=== PATIENT | female | born 1955 | race Caucasian/White ===

== ENCOUNTER 2021-08-09 16:40 | Emergency (ER) | payer OTHER ==
[2021-08-09 17:04] VITALS: BP 151/82; PULSE 65; TEMP 99; BMI 27.7
[2021-08-09] MEDS ORDERED: ACETAMINOPHEN 325 MG TABLET (FP) PO ONE (17:23)
[2021-08-09] MEDS ORDERED: METOCLOPRAMIDE HCL 10 MG TABLET (FP) PO ONE ×2 (17:28→17:35)
[2021-08-09] MEDS ORDERED: ACETAMINOPHEN 325 MG TABLET (FP) ONE (17:35)
[2021-08-09] MEDS ORDERED: CYCLOBENZAPRINE HCL 5 MG TABLET PO ONE (18:18)
[2021-08-09] MEDS ORDERED: CYCLOBENZAPRINE HCL 10 MG TABLET (FP) ONE (18:19)
== END 2021-08-09 18:30 | disposition home or self-care (01) ==
LOC: FER 16:40
DX: R51.9 Headache, unspecified (principal)
CPT/HCPCS: 99284-25

== ENCOUNTER 2024-09-09 03:45 | Observation (INO) | payer OTHER ==
[2024-09-09] MEDS: SODIUM CHLORIDE 1,000 ML IV SCH (04:44)
[2024-09-09 04:59] LABS: BASO % 0.3 % (0-2.0); EOS % 0.7 % (0-4.5); HEMATOCRIT 43.1 % (32.4-45.2); HEMOGLOBIN 14.5 GM/dL (10.7-15.3); LYMPH % 8.8 % (8-40); MCH 29.7 pg (25.7-33.7); MCHC 33.8 g/dl (32.0-36.0); MEAN PLT VOLUME 7.4 fl (7.5-11.1); MONO % 4.9 % (3.8-10.2); NEUT % 85.3 % (42.8-82.8); PLATELET COUNT 294 10^3/uL (134-434); WHITE BLOOD COUNT 9.7 K/mm3 (4.0-10.0)
[2024-09-09 05:07] LABS: INR 0.95 (0.83-1.09); PROTHROMBIN TIME (PATIENT) 10.9 SEC (9.7-13.0)
[2024-09-09 05:10] LABS: ACTIVATED PTT 23.1 SECONDS (25.2-36.5)
[2024-09-09 05:19] LABS: POTASSIUM 3.9 mmol/L (3.5-5.1)
[2024-09-09 05:21] LABS: ALBUMIN 3.4 g/dl (3.4-5.0); CALCIUM 8.9 mg/dL (8.5-10.1)
[2024-09-09 05:22] LABS: BLOOD UREA NITROGEN 24.6 mg/dL (7-18)
[2024-09-09 05:26] LABS: TOT PROT 6.6 g/dl (6.4-8.2)
[2024-09-09 05:27] LABS: BILIRUBIN,TOTAL 0.2 mg/dL (0.2-1)
[2024-09-09 15:46] VITALS: BMI 28.8
[2024-09-09] MEDS: LORazepam 2 MG/ML SDV VIAL IVPUSH PRN (17:48)
[2024-09-09] MEDS: INSULIN ASPART SLIDING SCALE (NOVOLOG) 1 VIAL SQ SCH (21:37)
[2024-09-10 09:34] LABS: HEMATOCRIT 39.1 % (32.4-45.2); HEMOGLOBIN 13.4 GM/dL (10.7-15.3); MCHC 34.4 g/dl (32.0-36.0); MEAN CELL VOLUME 87.1 fl (80-96); MEAN PLT VOLUME 7.7 fl (7.5-11.1); PLATELET COUNT 267 10^3/uL (134-434); RBC 4.48 M/mm3 (3.60-5.2); WHITE BLOOD COUNT 6.5 K/mm3 (4.0-10.0)
[2024-09-10 09:49] LABS: POTASSIUM 3.7 mmol/L (3.5-5.1)
[2024-09-10 09:54] LABS: ALBUMIN 3.2 g/dl (3.4-5.0); BLOOD UREA NITROGEN 13.2 mg/dL (7-18); CALCIUM 9.1 mg/dL (8.5-10.1); MAGNESIUM 2.3 mg/dL (1.8-2.4)
[2024-09-10 09:56] LABS: CREATININE 0.7 mg/dL (0.55-1.3); PHOSPHOROUS 2.7 mg/dL (2.5-4.9)
[2024-09-10 09:57] LABS: BILIRUBIN,TOTAL 0.4 mg/dL (0.2-1); TOT PROT 6.1 g/dl (6.4-8.2)
[2024-09-10] MEDS: ENOXAPARIN NA (PORCINE) 40 MG/0.4 ML DISP.SYRIN SQ SCH (10:12)
[2024-09-10 10:22] VITALS: BP 138/60; PULSE 70; RESP 17; TEMP 97.8
== END 2024-09-10 11:09 | disposition home or self-care (01) ==
LOC: JER 03:45 → UNDOADMOB 05:46 → JERBED 05:46 → INTOOBSV 05:46 → JERBED 09:45 → J7W 09:45 → JERBED 14:31 → J7W 14:31
PROVIDERS: ADMIT Internal Medicine
PROC: 3E033GC Introduction of Other Therapeutic Substance into Peripheral Vein, Percutaneous Approach (ICD-10-PCS; principal; 2024-09-09)
PROC: 3E0337Z Introduction of Electrolytic and Water Balance Substance into Peripheral Vein, Percutaneous Approach (ICD-10-PCS; 2024-09-09)
DX: R41.82 Altered mental status, unspecified (principal); E03.9 Hypothyroidism, unspecified; E78.5 Hyperlipidemia, unspecified; J44.9 Chronic obstructive pulmonary disease, unspecified
CPT/HCPCS: 36415; 70450-TC; 70551-TC; 71045-TC-FY; 80053; 80061; 82550; 82962; 83036; 83735; 84100; 84484; 85025; 85027; 85610; 85730; 86850; 86900; 86901; 96374; 99285-25; G0378

== ENCOUNTER 2024-12-04 09:38 | Observation (INO) | payer OTHER ==
[2024-12-04 10:12] VITALS: BMI 28.1
[2024-12-04] MEDS: SODIUM CHLORIDE 0.9% 500 ML INFUS.BAG IV ONE (10:30)
[2024-12-04 11:09] LABS: BASO % 0.3 % (0-2.0); EOS % 1.2 % (0-4.5); HEMATOCRIT 45.9 % (32.4-45.2); HEMOGLOBIN 15.8 GM/dL (10.7-15.3); LYMPH % 9.4 % (8-40); MCHC 34.4 g/dl (32.0-36.0); MEAN CELL VOLUME 87.2 fl (80-96); MEAN PLT VOLUME 7.2 fl (7.5-11.1); MONO % 6.5 % (3.8-10.2); NEUT % 82.6 % (42.8-82.8); PLATELET COUNT 336 10^3/uL (134-434); RBC 5.26 M/mm3 (3.60-5.2); RDW 13.2 % (11.6-15.6); WHITE BLOOD COUNT 8.3 K/mm3 (4.0-10.0)
[2024-12-04 11:11] LABS: EPI CELLS 12 /uL (0-25.1); HYALINE CASTS 3 /uL (0-3.1); PH,URINE 6.5 (5.0-8.0); URINE APPEARANCE CLEAR; URINE BACTERIA 17 /uL (0-1359); URINE BILIRUBIN NEGATIVE (NEGATIVE); URINE COLOR YELLOW; URINE GLUCOSE (UA) NEGATIVE (NEGATIVE); URINE KETONE NEGATIVE (NEGATIVE); URINE LEUK ESTERASE NEGATIVE (NEGATIVE); URINE NITRITE NEGATIVE (NEGATIVE); URINE PROTEIN 2+ (NEGATIVE); URINE RBC 20 /uL (0-23.9); URINE UROBILINOGEN 0.2 mg/dL (0.2-1.0); URINE WBC 12 /uL (0-25.8)
[2024-12-04 11:16] LABS: INR 0.99 (0.83-1.09); PROTHROMBIN TIME (PATIENT) 10.8 SEC (9.7-13.0)
[2024-12-04 11:18] LABS: ACTIVATED PTT 25.3 SECONDS (25.2-36.5)
[2024-12-04 11:30] LABS: POTASSIUM 4.2 mmol/L (3.5-5.1)
[2024-12-04 11:34] LABS: CALCIUM 9.6 mg/dL (8.5-10.1)
[2024-12-04 11:35] LABS: ALBUMIN 3.9 g/dl (3.4-5.0); MAGNESIUM 2.6 mg/dL (1.8-2.4)
[2024-12-04 11:38] LABS: CREATININE 0.9 mg/dL (0.55-1.3)
[2024-12-04 11:39] LABS: BILIRUBIN,TOTAL 0.4 mg/dL (0.2-1); TOT PROT 7.6 g/dl (6.4-8.2)
[2024-12-04] MEDS: dilTIAZem HCL 50 MG/10 ML - 10 ML VIAL IVPUSH ONE ×2 (12:00→14:52)
[2024-12-04] MEDS: levETIRAcetam 500 MG/5 ML INJECTION VIAL IVPB ONE (12:10)
[2024-12-04] MEDS ORDERED: levETIRAcetam 500 MG/5 ML INJECTION VIAL IVPB ONE (12:12)
[2024-12-04] MEDS ORDERED: dilTIAZem HCL 50 MG/10 ML - 10 ML VIAL ONE (12:13)
[2024-12-04] MEDS ORDERED: ALBUTEROL SO4 HFA INHALER IH PRN (16:15)
[2024-12-04] MEDS: LACTATED RINGERS SOLUTION 1,000 ML/1,000 ML INFUS.BAG IV SCH (19:03)
[2024-12-04] MEDS: APIXABAN 5 MG TABLET PO SCH (21:26)
[2024-12-04] MEDS: ATORVASTATIN CA 10 MG TABLET (FP) PO SCH (21:26)
[2024-12-04] MEDS: levETIRAcetam 500 MG TABLET (FP) PO SCH (21:27)
[2024-12-04] MEDS: MELATONIN 1 MG TABLET PO SCH (22:51)
[2024-12-04] MEDS: BUDESONIDE/FORMETEROL FUMARATE 160/4.5 mcg INHALER IH SCH (22:51)
[2024-12-04] MEDS ORDERED: LORazepam 2 MG/ML SDV VIAL IVPUSH PRN (23:44)
[2024-12-05] MEDS: LEVOTHYROXINE NA 100 MCG TABLET (FP) PO SCH (06:41)
[2024-12-05 07:56] LABS: BASO % 0.5 % (0-2.0); HEMOGLOBIN 13.1 GM/dL (10.7-15.3); LYMPH % 27.2 % (8-40); MCH 29.6 pg (25.7-33.7); MCHC 33.5 g/dl (32.0-36.0); MEAN CELL VOLUME 88.4 fl (80-96); MEAN PLT VOLUME 7.6 fl (7.5-11.1); MONO % 9.7 % (3.8-10.2); NEUT % 59.6 % (42.8-82.8); PLATELET COUNT 261 10^3/uL (134-434); RBC 4.41 M/mm3 (3.60-5.2); RDW 13.4 % (11.6-15.6); WHITE BLOOD COUNT 6.9 K/mm3 (4.0-10.0)
[2024-12-05 08:13] LABS: POTASSIUM 4.6 mmol/L (3.5-5.1)
[2024-12-05 08:31] LABS: CALCIUM 8.9 mg/dL (8.5-10.1)
[2024-12-05 08:32] LABS: BLOOD UREA NITROGEN 17.6 mg/dL (7-18); MAGNESIUM 2.4 mg/dL (1.8-2.4)
[2024-12-05 08:33] LABS: ALBUMIN 3.1 g/dl (3.4-5.0)
[2024-12-05 08:35] LABS: CREATININE 0.7 mg/dL (0.55-1.3); PHOSPHOROUS 3.7 mg/dL (2.5-4.9)
[2024-12-05 08:36] LABS: BILIRUBIN,TOTAL 0.8 mg/dL (0.2-1)
[2024-12-05 08:37] LABS: TOT PROT 5.9 g/dl (6.4-8.2)
[2024-12-05] MEDS ORDERED: METOPROLOL TARTRATE 25 MG TABLET (FP) PO SCH (10:00)
[2024-12-05] MEDS: metoPROLOL SUCCINATE 25 MG TAB.SR.24H (FP) PO SCH (10:05)
[2024-12-06] MEDS: MELATONIN 1 MG TABLET PO ONE (00:37)
[2024-12-06 07:59] LABS: BASO % 0.6 % (0-2.0); EOS % 3.5 % (0-4.5); HEMATOCRIT 39.4 % (32.4-45.2); HEMOGLOBIN 13.9 GM/dL (10.7-15.3); LYMPH % 23.7 % (8-40); MCH 30.7 pg (25.7-33.7); MCHC 35.1 g/dl (32.0-36.0); MEAN CELL VOLUME 87.2 fl (80-96); MEAN PLT VOLUME 7.4 fl (7.5-11.1); MONO % 9.4 % (3.8-10.2); NEUT % 62.8 % (42.8-82.8); PLATELET COUNT 269 10^3/uL (134-434); RBC 4.52 M/mm3 (3.60-5.2); RDW 13.3 % (11.6-15.6); WHITE BLOOD COUNT 6.5 K/mm3 (4.0-10.0)
[2024-12-06 08:17] LABS: POTASSIUM 4.2 mmol/L (3.5-5.1)
[2024-12-06 08:30] LABS: BLOOD UREA NITROGEN 18.4 mg/dL (7-18)
[2024-12-06 08:31] LABS: ALBUMIN 3.4 g/dl (3.4-5.0); MAGNESIUM 2.2 mg/dL (1.8-2.4)
[2024-12-06 08:34] LABS: CREATININE 0.8 mg/dL (0.55-1.3); PHOSPHOROUS 4.5 mg/dL (2.5-4.9)
[2024-12-06 08:35] LABS: BILIRUBIN,TOTAL 0.4 mg/dL (0.2-1); TOT PROT 6.2 g/dl (6.4-8.2)
[2024-12-06 10:15] VITALS: BP 131/81; PULSE 58; RESP 16; TEMP 98.1
== END 2024-12-06 10:56 | disposition home or self-care (01) ==
LOC: JER 09:38 → JERBED 13:16 → UNDOADMOB 13:16 → INTOOBSV 13:16 → JERBED 16:24 → J4W 16:24 → JERBED 12-05 10:24 → J4W 12-05 10:24
PROVIDERS: ADMIT Internal Medicine; ATTEND Internal Medicine
PROC: 3E033GC Introduction of Other Therapeutic Substance into Peripheral Vein, Percutaneous Approach (ICD-10-PCS; principal; 2024-12-05)
DX: R56.9 Unspecified convulsions (principal); I48.91 Unspecified atrial fibrillation; E05.00 Thyrotoxicosis with diffuse goiter without thyrotoxic crisis or storm; E78.5 Hyperlipidemia, unspecified; K76.0 Fatty (change of) liver, not elsewhere classified; R73.03 Prediabetes; Z79.01 Long term (current) use of anticoagulants
CPT/HCPCS: 36415; 70450-TC; 71045-TC-FY; 80053; 81003; 82962; 83735; 84100; 84439; 84443; 84484; 85025; 85610; 85730; 86850; 86900; 86901; 87086; 93005; 93010; 93306-TC; 96361; 96374; 96375; 96376; 99285-25; G0378

== ENCOUNTER 2025-03-05 14:28 | Emergency (ER) | payer OTHER, MEDICARE ==
[2025-03-05 15:06] VITALS: TEMP 98.2; BMI 28.9
[2025-03-05 16:14] LABS: ABSOLUTE IMMATURE GRANULOCYTES 0.03 x10^3/uL (0.0-0.031); BASOPHILS # 0.03 x10^3/uL (0.01-0.08); EOSINOPHIL % 0.6 % (0.7-5.8); EOSINOPHILS # 0.04 x10^3/uL (0.04-0.36); HEMATOCRIT 43.6 % (34.1-44.9); HEMOGLOBIN 14.5 g/dL (11.2-15.7); MCHC 33.3 g/dl (32.2-35.5); MEAN CELL VOLUME 88.4 fl (79.4-94.8); MONOCYTE % 9.3 % (4.7-12.5); PLATELET COUNT 301 x10^3/uL (182-369); RDW 13.3 % (12.4-16.4)
[2025-03-05 16:22] LABS: INR 1.18 (0.83-1.09); PROTHROMBIN TIME (PATIENT) 12.9 SEC (9.7-13.0)
[2025-03-05 16:25] LABS: ACTIVATED PTT 29.8 SECONDS (25.2-36.5)
[2025-03-05 16:50] LABS: POTASSIUM 4.3 mmol/L (3.5-5.1)
[2025-03-05 16:52] LABS: CALCIUM 9.8 mg/dL (8.5-10.1)
[2025-03-05 16:53] LABS: ALBUMIN 3.5 g/dl (3.4-5.0); BLOOD UREA NITROGEN 21.9 mg/dL (7-18); MAGNESIUM 2.3 mg/dL (1.8-2.4)
[2025-03-05 16:56] LABS: CREATININE 0.8 mg/dL (0.55-1.3)
[2025-03-05 16:58] LABS: BILIRUBIN,TOTAL 0.3 mg/dL (0.2-1)
[2025-03-05 17:39] LABS: HCV DIAGNOSTIC IN-HOUSE W/RFLX NON-REACTIVE (NONREACTIVE); HIV INTERPRETATION NEGATIVE (NEGATIVE)
[2025-03-05 17:43] LABS: PH,URINE 5.5 (5.0-8.0); URINE APPEARANCE CLOUDY; URINE BILIRUBIN NEGATIVE (NEGATIVE); URINE COLOR YELLOW; URINE GLUCOSE (UA) NEGATIVE (NEGATIVE); URINE KETONE TRACE (NEGATIVE); URINE LEUK ESTERASE NEGATIVE (NEGATIVE); URINE NITRITE NEGATIVE (NEGATIVE); URINE PROTEIN NEGATIVE (NEGATIVE); URINE UROBILINOGEN 0.2 mg/dL (0.2-1.0)
[2025-03-05 18:10] VITALS: BP 129/76; PULSE 68; RESP 18
== END 2025-03-05 18:25 | disposition home or self-care (01) ==
LOC: JER 14:28
DX: R07.2 Precordial pain (principal); G47.00 Insomnia, unspecified; R00.2 Palpitations
CPT/HCPCS: 36415; 80053; 81003; 83735; 84439; 84443; 84484; 85025; 85610; 85730; 86803; 87086; 87389; 93005; 93010; 99284-25

== ENCOUNTER 2025-05-31 20:17 | Emergency (ER) | payer OTHER, MEDICARE ==
[2025-05-31 20:50] VITALS: BP 144/72; PULSE 68; RESP 18; TEMP 98; BMI 31.2
== END 2025-05-31 20:51 | disposition home or self-care (01) ==
LOC: FER 20:17
DX: T23.222A Burn of second degree of single left finger (nail) except thumb, initial encounter (principal); X58.XXXA Exposure to other specified factors, initial encounter; Y93.G3 Activity, cooking and baking
CPT/HCPCS: 99283-25